=== PATIENT | male | born 1980 ===

== ENCOUNTER → 2024-03-15 07:30 | Outpatient (REF) | payer OTHER, SELFPAY | LOC: CLAB 07:30 | PROVIDERS: ATTENDING PHYSICIAN Surgery | DX: Z30.2 Encounter for sterilization (principal) | CPT/HCPCS: 88302 ==

== ENCOUNTER 2025-05-17 06:12 | Day surgery (SDC) | payer OTHER, SELFPAY | END 2025-05-17 13:09 | disposition home or self-care (01) | LOC: GI 06:12 | PROVIDERS: ATTENDING PHYSICIAN Internal Medicine | DX: Z12.11 Encounter for screening for malignant neoplasm of colon (principal); K57.30 Diverticulosis of large intestine without perforation or abscess without bleeding; K64.8 Other hemorrhoids; D12.3 Benign neoplasm of transverse colon; K63.5 Polyp of colon | CPT/HCPCS: 45385; 45380; 88305 ==